=== PATIENT | female | born 1955 | race Caucasian/White ===

== ENCOUNTER 2023-12-02 08:57 | Outpatient (RCR) | payer OTHER, SELFPAY | END 2023-12-02 23:59 | disposition home or self-care (01) | LOC: RPT 08:57 | PROVIDERS: ATTENDING PHYSICIAN Family Medicine | DX: M25.551 Pain in right hip (principal); M70.61 Trochanteric bursitis, right hip; M62.81 Muscle weakness (generalized); Z73.6 Limitation of activities due to disability | CPT/HCPCS: 97010; 97110; 97140; 97161; 97530 ==

== ENCOUNTER 2023-12-19 08:57 | Outpatient (RCR) | payer OTHER, SELFPAY | END 2023-12-19 23:59 | disposition home or self-care (01) | LOC: RPT 08:57 | PROVIDERS: ATTENDING PHYSICIAN Family Medicine | DX: M70.61 Trochanteric bursitis, right hip (principal); Z73.6 Limitation of activities due to disability; M25.551 Pain in right hip; M62.81 Muscle weakness (generalized) | CPT/HCPCS: 97010; 97110; 97112; 97530 ==

== ENCOUNTER 2024-01-16 08:46 | Outpatient (RCR) | payer OTHER, SELFPAY | END 2024-01-16 23:59 | disposition home or self-care (01) | LOC: RPT 08:46 | PROVIDERS: ATTENDING PHYSICIAN Family Medicine | DX: M70.61 Trochanteric bursitis, right hip (principal); M62.81 Muscle weakness (generalized); M25.551 Pain in right hip; Z73.6 Limitation of activities due to disability | CPT/HCPCS: 97110; 97530 ==

== ENCOUNTER → 2024-02-24 07:57 | Outpatient (REF) | payer OTHER, SELFPAY | LOC: RAD 07:57 | PROVIDERS: ATTENDING PHYSICIAN Family Medicine | DX: M70.61 Trochanteric bursitis, right hip (principal) | CPT/HCPCS: 73502 ==

== ENCOUNTER → 2024-07-05 14:19 | Outpatient (REF) | payer OTHER, SELFPAY | LOC: WDC 14:19 | PROVIDERS: ATTENDING PHYSICIAN Family Medicine | DX: Z12.31 Encounter for screening mammogram for malignant neoplasm of breast (principal) | CPT/HCPCS: 77063; 77067 ==

== ENCOUNTER → 2025-07-18 14:13 | Outpatient (REF) | payer OTHER, SELFPAY | LOC: RAD 14:13 | PROVIDERS: ATTENDING PHYSICIAN Family Medicine | DX: M81.0 Age-related osteoporosis without current pathological fracture (principal) | CPT/HCPCS: 77080 ==